=== PATIENT | male | born 1955 | race Caucasian/White ===

== ENCOUNTER 2017-03-18 15:31 | Emergency (ER) | payer OTHER ==
[~2017-03-18] VITALS: Ht 165.1 cm; Wt 83.0 kg
[2017-03-18 19:25] VITALS: BP 140/84
== END 2017-03-18 19:25 | disposition home or self-care (01) ==
LOC: ED 15:31
DX: S61.012A Laceration without foreign body of left thumb without damage to nail, initial encounter (principal); I10 Essential (primary) hypertension; Z88.6 Allergy status to analgesic agent; Z87.19 Personal history of other diseases of the digestive system; W27.0XXA Contact with workbench tool, initial encounter; Y93.89 Activity, other specified; Y99.8 Other external cause status; Y92.007 Garden or yard of unspecified non-institutional (private) residence as the place of occurrence of the external cause
CPT/HCPCS: J2001; J2270; Q0092; Q0162